=== PATIENT | male | born 1990 | race Caucasian/White ===

== ENCOUNTER 2020-10-07 07:51 | Outpatient (CLI) | payer OTHER | END 2020-10-07 07:57 | disposition home or self-care (01) | LOC: SONOGRAMA 07:51 | PROVIDERS: ATTEND Internal Medicine Gastroenterology | DX: R12 Heartburn (principal); K59.09 Other constipation; R14.0 Abdominal distension (gaseous); R10.11 Right upper quadrant pain; R74.01 Elevation of levels of liver transaminase levels ==